=== PATIENT | male | born 1985 | race Caucasian/White ===

== ENCOUNTER 2019-02-27 10:56 | Emergency (ER) | payer BC ==
[2019-02-27 11:25] VITALS: BP 132/82
--- NOTE | 2019-02-27 11:29 | UC ---
General HPI - HPI Summary HPI Summary: 33 yo male, usually good health aside from reflux, with 2 weeks of cough and congestion, malaise. Subjective fever began last week, with temps to 99-100 earlier this week. Developed a hig fever evening of 02/25, with onset of diarrhea yesterday, now progressing to blood with stool. Decreased appetite for several days. Has had pain in the low back and hips for the past week, without injury. No travel. 5 mo in daycare developed vomiting today, but was previously well. Well water source. No suspect foods eaten. - History of Current Complaint Chief Complaint: UCGI Stated Complaint: FEVER,NAUSEA,DIARRHEA,BODY ACHES Time Seen by Provider: 02/27/19 11:26 Hx Obtained From: Patient Onset/Duration: Gradual Onset, Lasting Days - 7+ Onset Severity: Mild Current Severity: Moderate Pain Intensity: 4 Associated Signs & Symptoms: Positive: Back Pain, Cough, Diarrhea, Fever, Headache, Nausea - Allergy/Home Medications Allergies/Adverse Reactions: Allergies Allergy/AdvReac Type Severity Reaction Status Date / Time No Known Allergies Allergy Verified 02/27/19 11:19 Home Medications: Home Medications Acetaminophen [Acetaminophen Extra Strength] 1,000 mg PO Q6H PRN 02/27/19 [ History Confirmed 02/27/19] Albuterol HFA INHALER* [Ventolin HFA Inhaler*] 1 - 2 puff INH Q4H PRN 02/27/19 [ History Confirmed 02/27/19] Omeprazole CAP (NF) [Prilosec CAP* 20 MG] 20 mg PO DAILY 02/27/19 [History Confirmed 02/27/19] Vitamin THERAPEUTIC TAB* [Theragran TAB*] 1 tab PO DAILY 02/27/19 [History Confirmed 02/27/19] PMH/Surg Hx/FS Hx/Imm Hx Previously Healthy: Yes GI/ History: Gastroesophageal Reflux - Surgical History Surgical History: None - Family History Known Family History: Positive: Hypertension - brother, Diabetes - mother - Social History Occupation: Employed Full-time Lives: With Family Alcohol Use: None Substance Use Type: None Smoking Status (MU): Former Smoker Length of Time of Smoking/Using Tobacco: ~1 PPD x 5 Years When Did the Patient Quit Smoking/Using Tobacco: ~2011 Review of Systems All Other Systems Reviewed And Are Negative: Yes Constitutional: Positive: Fever, Fatigue, Other - myalgias Skin: Positive: Negative Eyes: Positive: Negative ENT: Positive: Sinus Congestion Respiratory: Positive: Cough. Negative: Shortness Of Breath Cardiovascular: Negative: Palpitations, Chest Pain Gastrointestinal: Positive: Diarrhea, Nausea Genitourinary: Positive: Other - good urine output, drinking a good amount of fluids.. Negative: Dysuria, Hematuria, Frequency, Urgency Motor: Positive: Negative Neurovascular: Positive: Negative Musculoskeletal: Positive: Arthralgia Neurological: Positive: Headache - off and on Psychological: Positive: Negative Is Patient Immunocompromised?: No Physical Exam Triage Information Reviewed: Yes Appearance: No Pain Distress, Well-Nourished, Ill-Appearing - looks mildly unwell. Vital Signs: Initial Vital Signs Temp 101.9 F 02/27/19 11:15 Pulse 108 02/27/19 11:15 Resp 18 02/27/19 11:15 BP 132/82 02/27/19 11:15 Pulse Ox 100 02/27/19 11:15 Eye Exam: Normal Eyes: Positive: Conjunctiva Clear ENT: Positive: Pharynx normal, TMs normal Neck: Positive: Supple, Nontender, No Lymphadenopathy Respiratory: Positive: Lungs clear, Normal breath sounds, No respiratory distress Cardiovascular: Positive: RRR, No Murmur Abdomen Description: Positive: Nontender, No Organomegaly, Soft. Negative: CVA Tenderness (R), CVA Tenderness (L), Guarding, Hepatomegaly, Peritoneal Signs, Splenomegaly Bowel Sounds: Positive: Present Musculoskeletal Exam: Normal, Other - full rom in hips but + discomfort with movement. Neurological: Positive: Alert, Muscle Tone Normal, Fatigued Psychological Exam: Normal Skin Exam: Normal Course/Dx - Course Course Of Treatment: Acute bloody diarrhea and fever, without associated travel. Given preceeding joint pains, could be presentation of an inflammatory colitis. Labs ordered, will continue rehydration at home. Stool samples obtained. - Diagnoses Provider Diagnosis: Diarrhea Discharge ED - Sign-Out/Discharge Documenting (check all that apply): Patient Departure All imaging exams completed and their final reports reviewed: No Studies - Discharge Plan Condition: Stable Disposition: HOME Patient Education Materials: Acute Diarrhea (ED), Nutrition Tips for Relief of Diarrhea (ED) Forms: *Work Release Referrals: Karina Mills NP [Primary Care Provider] - Additional Instructions: Lab work has been done to begin evaluation of your diarrhea, which could be infectious or inflammatory. You can use peptobismol --this would help to slow the diarrhea and also gives some antibacterial coverage. It will make your stools black. Continue oral rehydration, and eat lightly if you have an appetite. If you have decrease in urine output or increasing abdominal pain, please go the emergency room for additional treatment. Schedule a follow up with Karina Mills for next week. - Billing Disposition and Condition Condition: STABLE Disposition: Home
[2019-02-27] MEDS ORDERED: Acetaminophen TAB* 325 MG PO ONE (11:55)
[2019-02-27 14:49] LABS: ABS Lymphocytes 0.8 10^3/ul (1.0-4.8); ABS Neutrophils 14.2 10^3/ul (1.5-7.7); ABS Nucleated RBC 0.1 10^3/ul; Eosinophil % 0.1 %; Hematocrit 50 % (42-52); Hemoglobin 16.7 g/dL (14.0-18.0); Lymphocyte % 4.8 %; Mean Corpuscular HGB Conc 34 g/dL (31-36); Mean Corpuscular Hemoglobin 29 pg (27-31); Mean Corpuscular Volume 85 fL (80-94); Mean Platelet Volume 8.4 fL (7.4-10.4); Nucleated Red Blood Cells % 0.5; Platelet Count 192 10^3/uL (150-450); Red Blood Count 5.82 10^6 /uL (4.18-5.48); Red Cell Distribution Width 12 % (10-15); White Blood Count 15.9 10^3/uL (3.5-10.8)
[2019-02-27 15:09] LABS: Albumin 4.8 g/dL (3.2-5.2); Albumin/Globulin Ratio 1.7 (1-3); BUN/Creatinine Ratio 10.1 (8-20); C Reactive Protein 45.94 mg/L (<8.01); Calcium 9.6 mg/dL (8.6-10.3); EGFR African American 120.6 (>60); EGFR Non-African American 99.7 (>60); Globulin 2.9 g/dL (2-4); Potassium 4.9 mmol/L (3.5-5.0); Total Bilirubin 0.7 mg/dL (0.2-1.0); Total Protein 7.7 g/dL (6.4-8.9)
--- NOTE | 2019-02-28 07:17 | UC ---
- Progress Note Progress Note: Please call patient to check in. He has an elevated white count, normal red cell count and platelets. Electrolytes and kidney functions are normal, but his liver function tests are mildly elevated. Stools + for lactoferrin which could be infectious of inflammatory. If he is still feverish with any abdominal pain, persistent diarrhea, should proceed to the ER. If he is improving, should continue with rehydration and gradual increase in diet. Should definitely see his primary care physician on Saturday. Course/Dx - Diagnoses Provider Diagnoses: Diarrhea Discharge ED - Sign-Out/Discharge Documenting (check all that apply): Post-Discharge Follow Up All imaging exams completed and their final reports reviewed: No Studies - Discharge Plan Condition: Stable Disposition: HOME Patient Education Materials: Acute Diarrhea (ED), Nutrition Tips for Relief of Diarrhea (ED) Forms: *Work Release Referrals: Karina Mills, GLAZIER APPRENTICE [Primary Care Provider] - Additional Instructions: Lab work has been done to begin evaluation of your diarrhea, which could be infectious or inflammatory. You can use peptobismol --this would help to slow the diarrhea and also gives some antibacterial coverage. It will make your stools black. Continue oral rehydration, and eat lightly if you have an appetite. If you have decrease in urine output or increasing abdominal pain, please go the emergency room for additional treatment. Schedule a follow up with Karina Mills for next week. - Billing Disposition and Condition Condition: STABLE Disposition: Home
--- NOTE | 2019-03-03 07:23 | UC ---
- Progress Note Progress Note: Neg crypto. neg giardia no change ljj 03/03/19 Course/Dx - Diagnoses Provider Diagnoses: Diarrhea Discharge ED - Sign-Out/Discharge Documenting (check all that apply): Post-Discharge Follow Up All imaging exams completed and their final reports reviewed: No Studies - Discharge Plan Condition: Stable Disposition: HOME Patient Education Materials: Acute Diarrhea (ED), Nutrition Tips for Relief of Diarrhea (ED) Forms: *Work Release Referrals: Karina Mills, DIABETIC EDUCATOR [Primary Care Provider] - Additional Instructions: Lab work has been done to begin evaluation of your diarrhea, which could be infectious or inflammatory. You can use peptobismol --this would help to slow the diarrhea and also gives some antibacterial coverage. It will make your stools black. Continue oral rehydration, and eat lightly if you have an appetite. If you have decrease in urine output or increasing abdominal pain, please go the emergency room for additional treatment. Schedule a follow up with Karina Mills for next week. - Billing Disposition and Condition Condition: STABLE Disposition: Home
== END 2019-02-27 12:31 | disposition home or self-care (01) ==
LOC: UCCORT 10:56
DX: R19.7 Diarrhea, unspecified (principal); R50.9 Fever, unspecified; M54.5 Low back pain; R05 Cough; R51 Headache; R11.0 Nausea; R09.89 Other specified symptoms and signs involving the circulatory and respiratory systems; M25.50 Pain in unspecified joint; K21.9 Gastro-esophageal reflux disease without esophagitis; Z79.899 Other long term (current) drug therapy; Z87.891 Personal history of nicotine dependence
CPT/HCPCS: 36415; 80053; 83630; 85025; 86140; 87045; 87046; 87177; 87209; 87328; 87329; 87899; 99201; A9270-GY; G0463